=== PATIENT | male | born 1955 | race Caucasian/White ===

== ENCOUNTER 2020-04-13 16:20 | Inpatient (IN) | payer MEDICAID ==
[~2020-04-13] VITALS: Ht 177.8 cm; Wt 60.7 kg
[2020-04-13 16:25] VITALS: BP 83/56
[2020-04-13] MEDS ORDERED: PRINIVIL20 M1 PO (17:05)
[2020-04-13] MEDS ORDERED: DIPHENHIST50 MG PO (17:06)
[2020-04-13 17:25] LABS: ABSOLUTE NEUTROPHILS 7.9 thou/uL (1.4-8.2); BASOPHILS 0.8 % (0.0-2.0); EOSINOPHILS 0.7 % (0.0-3.0); HEMATOCRIT 41.4 % (42.0-52.0); HEMOGLOBIN 14.8 gm/dL (14.0-18.0); MCH 37.4 pg (26.0-34.0); MCHC 35.7 g/dL (28.0-37.0); MCV 104.8 fL (80.0-100.0); MONOCYTES 9.2 % (1.0-8.0); PLATELET COUNT 182 thou/uL (150-400); POLYS 74.3 % (36.0-66.0); RBC 3.95 mil/uL (4.50-6.00); RDW 13.6 % (10.5-14.5); WBC 10.6 thou/uL (4.0-11.0)
[2020-04-13 17:40] LABS: CALCIUM 9.8 mg/dL (8.5-10.1); POTASSIUM 3.7 mmol/L (3.5-5.1)
[2020-04-13 17:48] LABS: ALBUMIN 3.1 g/dL (3.4-5.0); DIRECT BILIRUBIN 0.3 mg/dL (<0.1-0.2); TOTAL BILIRUBIN 1.2 mg/dL (0.2-1.0); TOTAL PROTEIN 7.2 g/dL (6.4-8.2)
[2020-04-13 19:10] LABS: URINE BLOOD NEGATIVE (Negative); URINE CLARITY CLEAR; URINE COLOR YELLOW; URINE GLUCOSE-RANDOM* 1+ (Negative); URINE KETONES TRACE (Negative); URINE LEUKOCYTES-REFLEX NEGATIVE (Negative); URINE NITRITE-REFLEX NEGATIVE (Negative); URINE PROTEIN (DIPSTICK) NEGATIVE (Negative); URINE UROBILINOGEN 0.2 E.U./dl (0.2-1.0)
[2020-04-13 19:19] LABS: ICTOTEST (BILI CONFIRMATORY) Negative (Negative); URINE BILIRUBIN NEGATIVE (Negative)
[2020-04-13 21:44] VITALS: BP 84/51
[2020-04-13 22:30] VITALS: BP 92/62
[2020-04-14] VITALS (78 sets, daily range): BP systolic 84–126; BP diastolic 56–83
--- NOTE | 2020-04-14 02:07 | NUR ---
PT BECAME PROGRESSIVELY CONFUSED, RESTLESS AND COMBATIVE SINCE ARRIVING IN ICU. ATIVAN WAS GIVEN BUT NO EFFECT, PT CONTINUED TO BE RESTLESS, PULLING AT JOSHI CATHETER AND ATTEMPTING TO GET OUT OF BED, YELLING "GET ME OUT OF HERE!" SECURITY WAS CALLED TO THE ROOM, RESTRAINTS WERE INITIATED AND PRECEDEX GTT WAS STARTED PER SAEED JENKINS. AT THIS TIME PT IS SLEEPING, VITAL SIGNS STABLE, PRECEDEX AT MAX 1.4MCG/KG/HR, WILL MONITOR.
[2020-04-14 04:21] LABS: CALCIUM 8.4 mg/dL (8.5-10.1); CREATININE 3.2 mg/dL (0.7-1.3); HEMATOCRIT 35.3 % (42.0-52.0); MAGNESIUM 1.7 mg/dL (1.8-2.4); MCH 37.8 pg (26.0-34.0); MCHC 36.2 g/dL (28.0-37.0); MCV 104.5 fL (80.0-100.0); POTASSIUM 3.3 mmol/L (3.5-5.1); RBC 3.38 mil/uL (4.50-6.00); RDW 13.5 % (10.5-14.5); WBC 5.8 thou/uL (4.0-11.0)
[2020-04-14 04:24] LABS: HEMOGLOBIN 12.8 gm/dL (14.0-18.0)
--- NOTE | 2020-04-14 16:59 | NUR ---
ASSUMED PATIENT CARE AT 0700. SLEEP TILL 1640. VERY AGITAED TRY TO PULL JOSHI AND IV OUT. BP STABLE AT THE SOFT SIDE. PATIENT'S SON AT THE BED SIDE MOST OF DAY. REFUSED DRAINK. ON RESTRAINT. WILL KEEP MONITOR
--- NOTE | 2020-04-14 21:45 | NUR ---
PT IS EXTRTEMELY RESTLESS AND AGITATED YELLING OUT. HOME SPECIALIST NOTIFIED. GEODON 10 MG IM GIVEN. VSS SINUS DIONICIO TO SINUS RHYTHM. WILL CONT TO MONITOR
--- NOTE | 2020-04-14 23:00 | NUR ---
ONDINA CANAS ARCHITECTURE MANAGER LEFT ORDERS OK TO RESTART PRECEDEX FOR SEDATION.
[2020-04-15] VITALS (61 sets, daily range): BP systolic 95–143; BP diastolic 62–92
[2020-04-15 05:08] LABS: ALBUMIN 2.4 g/dL (3.4-5.0); CALCIUM 8.8 mg/dL (8.5-10.1); MAGNESIUM 1.4 mg/dL (1.8-2.4); PHOSPHORUS 2.1 mg/dL (2.5-4.9); POTASSIUM 3.7 mmol/L (3.5-5.1); TOTAL BILIRUBIN 0.7 mg/dL (0.2-1.0); TOTAL PROTEIN 5.7 g/dL (6.4-8.2)
[2020-04-15 05:22] LABS: CREATININE 1.9 mg/dL (0.7-1.3)
--- NOTE | 2020-04-15 06:00 | NUR ---
CONT TO HAVE OCC PERIODS OF RESTLESSNESS. PRECEDEX 0.1 MCG GTT SINUS DIONICIO TO SINUS RHYTHM. O2 SAT 100 % ONB ROOM AIR. 2000 CC UOP THIS SHOIFT. BATHED WILL CONT TO MONITOR,
--- NOTE | 2020-04-15 19:19 | NUR ---
DESIGNATED VISTOR SON CANDY VISITED TODAY X 3 HOURS, PRECEDEX ON HOLD BUT PT VERY DROWSY. SPOKE TO GABE (DPRICHIE) AND UPDATED HER ON PLAN OF CARE AND CONDITION. MORE AWAKE BY END OF SHIFT, OPENING EYES SPONTANEOUSLY, AND ANSWERING SOME QUESTIONS APPROPRIATELY. FAMILY CONCERNED ABOUT SEVERE SHORT TERM MEMORY LOSS RECENTLY. NO PRN MEDS GIVEN TODAY. CIWA SCORE 6-7.
--- NOTE | 2020-04-15 22:38 | NUR ---
2107 - SPOKE WITH PT'S SON CANDY. UPDATED PROVIDED ON PT STATUS AND POC FOR THE NIGHT.
[2020-04-16] VITALS (24 sets, daily range): BP systolic 97–134; BP diastolic 62–89
[2020-04-16 04:07] LABS: ALBUMIN 2.1 g/dL (3.4-5.0); ANION GAP 10 mmol/L (7-16); BUN 21 mg/dL (7-18); CHLORIDE 108 mmol/L (98-107); CO2 24 mmol/L (21-32); CREATININE 1.4 mg/dL (0.7-1.3); GLUCOSE 111 mg/dL (74-106); POTASSIUM 3.2 mmol/L (3.5-5.1); SGOT 25 U/L (15-37); SGPT 10 U/L (30-65); SODIUM 142 mmol/L (136-145); TOTAL BILIRUBIN 0.9 mg/dL (0.2-1.0); TOTAL PROTEIN 5.8 g/dL (6.4-8.2)
--- NOTE | 2020-04-16 06:39 | NUR ---
PT HAS SLEPT MOST OF THE NIGHT. HE IS ARROUSABLE AND FOLLOWS COMMANDS. PT WAS IRRITABLE AND SLIGHTLY AGITATED WITH STIMULATION EARLIER IN THE SHIFT. THIS MORNING, HE IS MORE COOEPRATIVE AND AGREEABLE WITH CARE. VSS. AFEBRILE. LORAZEPAM GIVEN ONCE DURING THE NIGHT. PT IS ALSO SPEAKING IN MORE COMPLETE SENTENCES THIS MORNING. BILATERAL WRIST RESTRAINTS D/C'D AT 0630. PT IS EASILY REDIRECTABLE AND HAS NOT BEEN PULLING AT LINES. PROGRESSING SLOWLY TOWARD POC GOALS. WILL GIVE REPORT TO ONCOMING NURSE. 0610- DTR ULISES CALLED UNIT FOR UPDATE. SHE WAS ABLE TO SPEAK TO HER FATHER ON THE PHONE WELL.
--- NOTE | 2020-04-16 10:20 | NUR ---
ASSESSMENT: CM REVIEWED CHART. PT WAS ADMITTED DUE TO ACUTE ENCEPHALOPATHY/WEAKNESS/AMS/JASVIR. PT IS FROM HOME. CM REACHED OUT TO PATIENTS DAUGHTER ULISES WHO REPORTS SHE IS THE DPOA AND HER BROTHER WAS GOING TO BRING IN THE PAPERWORK AND PROVIDE TO BEDSIDE RN. SHE REPORTS THAT PATIENT HAS A LONG HX OF ALCOHOL USE AND REPORTS HE COULD BE CONSIDERED A HOARDER. SHE REPORTS SINCE PATIENT HAS BEEN HOSPTIALIZED SHE AND HER BROTHER AND SISTER HAVE BEEN CLEANING PATIENTS HOME UP AND THAT HER SISTER BRENDAN PLANS ON MOVING IN WITH PATIENT ONCE HE IS ABLE TO GO HOME SO SHE CAN HELP ASSIST HIM AND LOOK AFTER HIM. THEY REPORT PATIENT IS NORMALLY VERY INDEPENDENT WITH ADLS AND AMBULATION. PT HAS ABOUT 16 STEPS WITH HANDRAILS TO HIS BEDROOM AND DAUGHTER REPORTS HE HAS NO ISSUES WITH STEPS. SHE STATES PATIENT HAS NOT HAD HH IN THE PAST NOR BEEN TO SNF. PT HAS LONG HX OF ALCOHOL USE AND DAUGHTER REPORTS HE HAS NOT BEEN TO AA/REHAB. SHE REPORTS HE WHISKEY DAILY. CM DISCUSSED ROLE. PATIENT IS SHOWING PATIENT PAY AND DAUGHTER REPORTS THIS IS ACCURATE AND HE CURRENTLY HAS NO INSURANCE. CM WILL CONTINUE TO FOLLOW TO ASSIST NEEDED.
--- NOTE | 2020-04-16 22:21 | NUR ---
ASSUMED PT CARE AT 1900. VSS. PT ORIENTED TO PERSON, TIME BUT NOT PLACE OR SITUATION, PT FOLOWS COMMANDS BUT DROWSY. SPOKE TO PT'S DTR BRENDAN AROUND 9PM AND UPDATED HER ON OT STATUS. OTHER ASSESSMENTS ARE CHARTED. PT IS PROGRESSING WELL TOWARDS POC GOALS.
[2020-04-17] VITALS (13 sets, daily range): BP systolic 105–142; BP diastolic 64–94
[2020-04-17 05:00] LABS: ALBUMIN 2.1 g/dL (3.4-5.0); CREATININE 1.5 mg/dL (0.7-1.3); PHOSPHORUS 2.1 mg/dL (2.5-4.9)
--- NOTE | 2020-04-17 13:59 | NUR ---
PATIENT TO CT SCAN VIA BED WITH TRANSPORTER
[2020-04-17 16:04] LABS: MAGNESIUM 1.5 mg/dL (1.8-2.4); POTASSIUM 3.7 mmol/L (3.5-5.1)
--- NOTE | 2020-04-17 18:12 | NUR ---
ASSUMED CARE PT SHIFT CHANGE. ASSESSMENTS CHARTED.MEDS GIVEN PER OCT. PT DROWSY THROUGHOUT SHIFT. ORIENTED X1-2. REORIENTED FREQUENTLY. PT DOES NOT SEEM TO REMEMBER THINGS WELL, FAMILY STATED PT'S MEMORY HAS DECLINED RECENTLY. PHYSICIAN NOTIFIED. NEURO CONSULTED. CT HEAD-REFER TO RESULTS. FAMILY UPDATED ON POC. SON VISITED WITH PT AT BEDSIDE. PT WORKED WITH PHYS THERAPY TOLERATING FAIR. CIWA SCORES CHARTED. PT BECAME AGITATED TOWARDS END OF SHIFT. PULLED OUT IV, PT REASON WAS HE DID NOT WANT IT ON HIS ARM. IV PLACED PER IV TEAM, WRAPPED IN KOBAN. PT SEEMS TO BE MORE COOPERATIVE AFTER NURSE EXPLAINS REASON FOR IV AND IV FLUIDS. PT REFUSED MEALS AND SUPPLEMENT FOR BREAKFAST AND LUNCH, ATE SOME OF DINNER. ENCOURAGED TO EAT AND DRINK. PT CURRENTLY SITTING UP IN BED ATTEMPTING TO USE HIS PHONE. WILL CONTINUE TO MONITOR PT. WILL PASS ON REPORT TO ALEXANDRA RN.
--- NOTE | 2020-04-17 20:05 | NUR ---
This RN received report from Vanessa BRUCE. This RN passed medications and gave report to JANIS Berry in CCU. Patient successfully transfered to CCU from [facility], with all belongings.
--- NOTE | 2020-04-18 01:00 | NUR ---
ASSUMED CARE FROM DAY SHIFT ICU TRANSFER, PT CONFUSED TO TIME AND SURROUNDING AND SITUATION PT CIWA WAS NINE PULL IV OUT, AND ATTEMPTING TO CLIMB OUT OF BED. AFTER 2 IV REMOVED AND PT MEDICATED PER CIWA PROTOCOL. PT REMAINS . ERNESTO TIPTON CALLED AND ORDER RECIEVED SOFT RESTAINTS UNTIL PT IS CALM AND COOPERATIVE. ORDER OBTAINED AT 2245 . HR 107 BP ELEVATED DUE TO INCREASE AGITATION. FREQ CHECKS AND CIWA EVERY 2 HOURS . WILL CONINTUE WITH CURRENT PLAN OF CARE.
[2020-04-18 03:30] VITALS: BP 154/90
--- NOTE | 2020-04-18 05:06 | NUR ---
PT LESS AGITATED AND RESTLESS ,CIWA 7 , REMAIN CONFUSED AND SOFT RESTRAINTS ON WRIST IV FLUIDS INFUSING WELL. TALKED WITH DAUGHTER NESSA INFORMED OF RESTRAINTS PLACEMENT, AND CURRENT PLAN OF CARE. WILL CONINTUE TO MONITOR AND REPORT CHANGES.
[2020-04-18 06:32] LABS: CREATININE 1.4 mg/dL (0.7-1.3); POTASSIUM 3.5 mmol/L (3.5-5.1)
[2020-04-18 07:30] VITALS: BP 134/85
[2020-04-18 11:30] VITALS: BP 140/96
--- NOTE | 2020-04-18 16:48 | NUR ---
Patient transferred from ICU he was taken out of restraints this am. he has been sleeping most of day. he is not eating well. Did not participate with therapy. He has no insurance. Sp with dtr Isabelle and son at bedside. Son reports we are planning to take patient home "when can we take him home?' was expressed multiple times by son during conversation. Discussed how sleepy he is today and cannot arouse to eat or be able to participate with therapy. Son reports dtr with her 7 children moving into home. he reports someone will always be avail to patient. family can assist with meals. Son reports he is forgetfull and has weakened in past month to weeks. Dtr concerned patient sedated and now unable to participate in therapy or eat. Discussed cannot have Home health care with no insurancce. Son reports they will pay out of pocket for therapy. Attmept to attain pricing if reasonable. PCP Dr Ludin Cameron. john gomez at me
[2020-04-18 20:00] VITALS: BP 134/88
--- NOTE | 2020-04-18 23:20 | NUR ---
ASSUMED CARE AT THIS TIME , PT ALERT CONFUSED CLIMBING OUT OF BED INCONTINENT OF URINE, CIWA 13, PT MEDICATED PER CIWA PROTOCOL AND CONDOM CATHETER PLACED ON , SOFT WRIST RESTRAINTS ON FOR SAFETY, DUE PT UNSTEADY GAIT , CONFUSION AND PT PULLING OUT LINES AND TUBES. WILL CONINTUE TO MONITOR WAGNER.
[2020-04-19] VITALS (7 sets, daily range): BP systolic 118–146; BP diastolic 50–99
--- NOTE | 2020-04-19 06:26 | NUR ---
PT REMAIN RESTLESS AND CONFUSED THROUGHOUT FREQ AND HOURLY ROUNDING,WRIST ARE RED DUE TO PT PULLING AT SOFT RESTRAINTS, WRIST WERE PADDED WITH FOAM DRESSING. ELBOW ARE RED DUE PT RUBBING ARMS BACK AND FORTH PILLOW UNDER ARM BUT PULLING PILLOWS OUT. WILL CONINTUE WITH CURRENT PLAN OF CARE.
--- NOTE | 2020-04-19 10:39 | NUR ---
SPOKE WITH SON AT BEDSIDE TO INFORM OF PT'S PROGRESS. PT SLEEPY AT THIS TIME BUT WILL AROUSE TO STIMULI. PT CONFUSED AT TO WHEHE HE IS AND WHY HE IS IN HOSPITAL. AWAITING DR. CADENA TO ROUND ON PATIENT.
[2020-04-19 14:28] LABS: HEMATOCRIT 35.8 % (42.0-52.0); HEMOGLOBIN 12.7 gm/dL (14.0-18.0); MCHC 35.5 g/dL (28.0-37.0); MCV 104.1 fL (80.0-100.0); RBC 3.44 mil/uL (4.50-6.00); RDW 13.4 % (10.5-14.5); WBC 7.5 thou/uL (4.0-11.0)
[2020-04-19 14:37] LABS: CALCIUM 8.8 mg/dL (8.5-10.1); POTASSIUM 3.3 mmol/L (3.5-5.1)
--- NOTE | 2020-04-19 16:38 | NUR ---
ESTABLISHED DOBHOFF FEEDING TUBE RIGHT NARE HOWEVER WHILE WAITING FOR XRY PT PULLED OUT. PT EXTREMELY AGITATED BY FEEDING TUBE AND WAS ABLE TO PULL IT OUT EVEN WITH SOFT BILAT WRIST RESTRAINTS. PAGE DR. CADENA AT LEAST 5 TIMES TO INFORM HOWEVER NO RETURN CALL. WILL REPLACE ELECTROLYTES IV AND CONTINUE TO ASSESS.
--- NOTE | 2020-04-19 17:50 | NUR ---
SPOKE WITH ASYA (GIANNA) ABOUT HER CONCERN OF PT'S ETOH WITHDRAWAL AND TREATMENT WITH ATIVAN FOR HIGH CIWA SCORES. DAUGHTER STATES THAT SHE BELIEVES ATIVAN IS REASON FOR HIS ALTERED MENTATION. LUANN WEBER DR. AND SURINDER INFORM DAUGHTER THAT PATIENT HAS AN ETOH ENCEPHALOPTY/ DEMENTIA. HIS BASELINE MAY BE CONFUSION HOWEVER THEY WILL BE UNSURE UNTIL A FEW DAYS. INFORM DAUGHTER THAT I WILL ASK PULPWOOD BUYER TO HOLD ATIVAN TO SEE IF THIS MAY HELP. PT REMIANS IN SOFT BILAT WRIST RESTRAINTS. INFORM DAUGHTER THAT PT PULLED OUT DOBHOFF TUBE SHORTLY AFTER IT WAS ESTABLISHED. CONTINUE TO TRY TO CONTACT DR. CADENA HOWEVER NO RETURN CALL. WILL CONTINUE TO ASSESS.
--- NOTE | 2020-04-19 17:56 | NUR ---
patient in restraints, sleeping most of day not responsive. patient not eating. Patient resides in home independently. Hx of ETOH use. Rn and phys sp with dtr/son at bedside and on phone. No weekend dc plans. Patient with no health insurance. casemgt following.
--- NOTE | 2020-04-19 19:18 | NUR ---
Spoke with daughter Isabelle [phone] at great length after she had spoken with Dr. Larose. Daughter has a better understanding of current medication and treatment plan going forward. Nursing concerns were brought to the attention of the special investigation unit investigator and powerhouse engineer. Informed daughter if she had an further concerns over the weekend to reach out to the circular head saw operator to contact the powerhouse engineer and informed both the powerhouse engineer and the daughter that I would be more than happy to speak with her this weekend as well. Assured daughter and confirmed with hand cigar making supervisor that the patients nurse will call around 10 PM and again at 6 AM to give an update on her father's status. Daughter repeatedly thanked me and Dr. Larose for our calls, information and support. YANY CM notified of all of above and will follow for discharge planning needs as they arise.
--- NOTE | 2020-04-20 02:33 | NUR ---
assumed pt care at the change of shift, pt is awake, alert and oriented to self, more agitated and restless trying to get out of bed, bilateral soft restrains on, pt medicated prn as ordered, pt is been sleeping well, no agitations thus far, frequent rounding and pericare done, warm blankets given for comfort, pt is sr on the monitor,vss, daughter called around 2214, updated about care, assessments as charted, no distress noted, will continue to monitor
[2020-04-20 04:00] VITALS: BP 139/83
[2020-04-20 05:49] LABS: APTT 39.2 Seconds (24.5-32.8); PROTIME 10.6 Seconds (9.3-11.4)
[2020-04-20 06:07] LABS: CALCIUM 8.8 mg/dL (8.5-10.1); CREATININE 1.1 mg/dL (0.7-1.3); POTASSIUM 3.3 mmol/L (3.5-5.1)
[2020-04-20 08:15] VITALS: BP 118/82
[2020-04-20 11:55] VITALS: BP 111/83
[2020-04-20 17:55] VITALS: BP 128/82
--- NOTE | 2020-04-21 07:54 | NUR ---
PROGRESS PT CALM LAST NIGHT SOFT WRIST RESTRAINTS IN PLACE REMOVED AND SKIN CHECKED Q2HRS. PT UP WITH SBA VOIDING PER URINAL. CARDIZEM DRIP INFUSING AT MG PT TOLERATING WELL. SKIN C/D/I NO AREAS OF BRAKDOWN NOTED . CONTINUE POC.
[2020-04-21 08:15] VITALS: BP 115/81
[2020-04-21 08:23] LABS: MAGNESIUM 1.6 mg/dL (1.8-2.4); POTASSIUM 3.7 mmol/L (3.5-5.1)
[2020-04-21 12:45] VITALS: BP 113/82
[2020-04-21 16:40] VITALS: BP 115/68
--- NOTE | 2020-04-21 17:00 | NUR ---
PT HAS PERIODS OF ANXIETY AND SWINGING AT STAFF...UNABLE TO REDIRECT TO FOLLOW COMMANDS...VERY CONFUSED...ATTEMPTED TO DANGLE TO SIDE OF BED WITH 2 ASSIST FOR 5 MIN...
--- NOTE | 2020-04-22 05:19 | NUR ---
ASSUME CARE 1900/. PT/VITALS STABLE. WITHDRAWALS NOTED WITH EPISODES OF AGITATION. ANXIETY/AGITATION RESOLVED WITH MEDICATION. ADEQUATE REST NOTED THROUGH THE NIGHT WITH SEDATIVES GIVEN AT BEDTIME ONLY. A/O TO PERSON ONLY BUT FOLLOWS COMMANDS WHEN DIRECTED. NO PAIN NOTED. ASSESSMENT CHARTED. SLOW PROGRESS TOWARDS POC. PLAN IS TO CONTINUE TO MONITOR ELECTROLYTES AND LOC. WILL CONTINUE TO FOLLOW WITH POC
--- NOTE | 2020-04-22 05:31 | NUR ---
late entry pt in soft wrist retraints. pt remains impulsive so wrist retrainst are in place pt reports no disconfort. sitting in bed .
--- NOTE | 2020-04-22 07:11 | HC ---
[facility] [place] [address] CONSULTATION Name: DEANGELO BARNETT Room #: 216-P ADM IN M.R.#: [id number] Admission: 04/13/20 Attend Phys: Kaye Fenton MD Discharge: Date of : 57 Report #: [id number] THIS REPORT FOR: cc: Paramjit Cameron,Paramjit Benites,Isaias Monaco MD ~ CC: Paramjit Fowler DATE OF SERVICE: 04/14/2020 NEPHROLOGY CONSULTATION REASON FOR CONSULTATION: Acute kidney injury. HISTORY OF PRESENT ILLNESS: This is a 64-year-old male who was brought to the Emergency Room by his family on the day of admission. They report that he has been failing significantly over the past couple of weeks. He has had mental status changes, loss of cognition, weakness. They are concerned as he is a heavy everyday drinker, drinking substantial amounts of whiskey every day. Intake of food and fluids has gone down. Blood pressures have been low on their checks. As he continued to worsen, he was brought into the Emergency Room yesterday. Labs will be as noted. We were asked to see him for a creatinine level of 4. The patient is still very somnolent and unable to help in taking a history. His son is at the bedside and reports his only prior issues have been some hypertension. He is a long-term smoker and long-term drinker. He was on 20 of lisinopril for hypertension, but the family held that appropriately. Never any other major medical problems. No prior surgeries or hospitalizations. He has never had substantial problem with alcohol withdrawal and has no previously diagnosed liver disease or alcohol related illness. MEDICATIONS: On admission include lisinopril 20 mg daily. ALLERGIES: No known medical allergies. FAMILY HISTORY: Unavailable. SOCIAL HISTORY: The patient is single, lives in [place], [place]. Several adult children live near him. He is retired from [employer] about 5 years ago. His son states that he spends every day drinking. He is also a chronic tobacco user of many, many years. REVIEW OF SYSTEMS: Has been weak. He has been losing weight, although he cannot quantify how much. Denies dyspnea. He is unaware of fevers, chills or [facility] [address] [place] [address] CONSULTATION Name: DEANGELO BARNETT Room #: 216-P [facility] IN .R.#: [id number] Admission: 04/13/20 Attend Phys: Kaye Fenton MD Discharge: Date of : 57 Report #: [id number] sweats. Appetite of food has been diminished. The family brings him in food and sometimes he will eat it and sometimes he would not. His mentation has been diminished. The son reports short-term memory is dramatically decreased. PHYSICAL EXAMINATION: GENERAL: A 64-year-old male seen in the Intensive Care Unit. He is very somnolent. He will arouse slightly and respond and try to open his eyes to make a bit of a grunting noise and then drifts right back to sleep. VITAL SIGNS: Current blood pressure 101/68. He had been as low as 76/45 on presentation yesterday. Temperature is 36.4 degrees centigrade, heart rate 58, respiratory rate 12, oxygen saturation 100%. HEENT: Shows pupils are equal and reactive at 3 mm. Sclerae are nonicteric. Oral mucosa is somewhat dry. NECK: Veins are flat. Neck is supple, no adenopathy. CHEST: Clear bilaterally. CARDIOVASCULAR: Heart has a regular rate and rhythm, borderline bradycardia. ABDOMEN: Nondistended, soft. Few bowel sounds are present. I cannot percuss or palpate an enlarged liver and/or any other organs. No guarding or rebound. EXTREMITIES: Shows some decreased skin turgor ____. No edema. LABORATORY DATA: Labs from presentation, sodium 136, potassium 3.7, chloride 92, bicarbonate 35, BUN 66, creatinine 4.0, glucose 107. AST 22, ALT 9, total bilirubin 1.2, calcium 9.8, magnesium 2.0. Total protein 7.2, albumin 3.2. CPK was 30. Alcohol less than 10. Ammonia less than 10. White count 10.6, hemoglobin 14.8, hematocrit 41.4, platelets 182,000 with an MCV of 104.8. Urinalysis; specific gravity 1.010, pH 6.0, 1+ glucose, trace ketones, negative microscopic exam. No radiologic studies were done. ASSESSMENT: 1. Acute kidney injury. He was hypotensive on arrival. He has been given quite a bit of fluids. He still needs more fluids as he is still hypovolemic on exam. He has been making some urine and creatinine level is starting to come down to 3.2. His urinalysis was significant only for the ketones that were present. No evidence of any inflammation based on cells. There is no proteinuria. We need to get a renal ultrasound to make sure he is not obstructed. We will give him some more IV fluids and follow along. Appropriately, with his hypotension, he has been off of his lisinopril. We will certainly keep him off of that at this time. At this point, I do not find evidence of other nephrotoxic exposures or other renal insults. 2. Long-term alcohol use/abuse. He was given Precedex overnight. He remains very somnolent. There is no evidence of withdrawal at this time, I will defer to the primary team. It is remarkable that he does not have more evidence of chronic liver disease. Bilirubin is minimally elevated. His MCV is high, but other than that, there is not much evident on his labs. [facility] [address] [address] CONSULTATION Name: DEANGELO BARNETT Room #: 216-P ADM IN M.R.#: [id number] Admission: 04/13/20 Attend Phys: Kaye Fenton MD Discharge: Date of : 57 Report #: [id number] 3. Long-term smoking disorder. 4. Past history of hypertension. Now off of the lisinopril. PLAN: 1. We will give him some additional IV fluid bolus. 2. Continue his current rate of IV fluids on top of that. 3. Continue to manage alcohol withdrawal. 4. Get a renal ultrasound. 5. Repeat labs again in the morning. 6. We will follow along the care of this patient. <ELECTRONICALLY SIGNED> By: Isaias Suarez MD 04/22/20 0711 [id number] Isaias Suarez MD /nt
--- NOTE | 2020-04-22 07:55 | NUR ---
soft restraints in place from 1900 04/20/20 to 0700 04/21/20, removed every 2 hours to check circulation, skin and behavior allow for food and fluids and bathroom use reapplied when put back to bed. I was unable to correct my charting for restraints.
--- NOTE | 2020-04-22 09:15 | NUR ---
On Wednesday04/21/2020 at 1413 was asked by the Dental Office Manager Rosendo to contact daughter Isabelle Flood at [phone] over concerns with father. I did call and she asked if her brother who was at the hospital and has been the designated visitor could join to which I agreed. Both expressed concerns of the length of time of their father had been in restraints and that Dr. Fenton had now started their father on Seroquel. Son reports on Wednesday that father had been out of restraints for a good portion of the day and was eating and drinking for him. Son and daughter concerned over patients incontinence while by being restrained. Explained I would make some calls and call them back. I then spoke with the nurse Latoya on the care of the patient. Asked Latoya to ask for assist to get the patient up to edge of bed if the patient is able while the son is in the room. To which she agreed. Son later told his sister that was being done. I did reach out to Dr. Fenton and inquired on the use of Seroquel and was there a discussion with Dr. Larose. Dr. Fenton stated since there was no psych coverage she order the medication. Informed Dr. Fenton that I would reach out to Dr. Larose (which was done at 1513) to for her to call Dr. Fenton on this case as she had seen and prescribed medication for the patient late Wednesday evening. Dr Fenton asked that I let the daughter know she would call Isabelle back after 4 today to discuss his care. Dr Larose contacted me back after her conversation with Dr. Fenton and the Seroquel was discontinued and the two agreed to Risperidone 0.5 three time daily. Returned call to hector Walton at 1454 and explained all of above. Also informed the daughter I would be discussing this case on Wednesday and will meet her father and possibly with Dr. Larose at rounds. Isabelle then informed me that her brother would not be able to visit on either Wednesday or Wednesday and she would like to be the visitor on these days. I told her there were strict protocols in place but I would escalate this request per she and her brothers request. At 1734 Dr. Fenton did reach out to me to let me know that she had connected with the daughter and all was improved. Will discuss case with Outside Cutter Hand and administration in light of all service recovery. Dental Office Manager was notified of all of the above.
--- NOTE | 2020-04-22 11:03 | NUR ---
Discussed status with nurse and met with patient who is out of restraints. Patient was at first groggy but became more alert. Dr. Larose was on the unit and she and I both met with the patient who was alert and oriented to time, place and person. Patient was not combative and could hold a conversation on his stay at the hospital and voiced an understanding of the plan of care. Nurse Maritza worked with Dr. Larose on adjustment of medications and was assisting the patient with breakfast and drinking. Notably patient was taking all medications by mouth without effort. Did speak with administration who agreed that daughter Yoli could be the designated visitor for Wednesday and Wednesday as the brother was unable to visit. Called the housekeeper and laundry assistant who alerted the roping tender (s) that the daughter would be on the list for 04/22 and 04/23. Notified the senior case manager that daughter will be in today and tomorrow as the discharge plan has been for the patient to go home with family. I then notified Yoli of the visiting for today and tomorrow and improved mental status seen this am, out of restraints, conversing appropriately and taking in PO medications and liquids and food. Daughter very appreciative of care and follow up and directions given [facility] and to stop and meet with roping tender as her name has been placed on the list. Case Management will continue to follow for further needs.
[2020-04-22 16:00] VITALS: BP 102/58
--- NOTE | 2020-04-22 19:45 | NUR ---
ASSUMED CARE AT CHANGE OF SHIFT. ALERT TO SELF, REQUIRES REIORIANTATION. CONFUSED TO PLACE AND SITUATION. PT PROGRESSING TOWARDS GOALS. TX MILD AGGITAION WITH PRN RISPERIDONE. ASSIST X1 WITH GATE BELT. APPETITE IMPROVING. UN ABLE TO DEMONSTRATE CALL LIGHT. FALL PRECAUTIONS IN PLACE.
[2020-04-22 20:30] VITALS: BP 99/59
[2020-04-23 04:45] VITALS: BP 96/70
--- NOTE | 2020-04-23 06:42 | NUR ---
ASSUME CARE 1900. PT/VITALS STABLE. A/O TO PERSON BUT IS COOPERATIV AND FOLLOWS COMMANDS WITH REDIRECTION. NO EPISODES OF AGITTION NOTED THROUGH THE SHIFT BUT PT IS STILL IMPULSIVE. OVERALL LOC IS IMPROVING WITH LESS SEDATIVES GIVEN. ASSESSMENT CHARTED. NO DISTRESS NOTED THROUGH THE NIGHT. ADEQUATE REST NOTED. NO INCONTINENCE NOTD. PT USES BATHROOM OR URINAL AT TIMES. DOES NOT CALL OUT FOR ASSISTANCE WITH ANY NEED BUT CAN BE REDIRECTED. PROGRESSING WELL WITH POC. PLAN IS TO CONTINUE TO MONITOR LOC. WILL FOLLOW WITH POC
[2020-04-23 07:10] VITALS: BP 99/72
--- NOTE | 2020-04-23 08:41 | NUR ---
ASSUMED CARE OF PT AT SHIFT CHANGE, AN 0900 MED GIVEN PRIOR SHIFT D/T IMPULSIVITY/EXCESS ACTIVITY. HE'S PRETTY LETHARGIC CURRENTLY YET A&0X2, IS NOT IMPULSIVE AT THIS TIME, WILL HELP GET HIM UP AND SET UP FOR BREAKFAST ONCE HE'S READY. SEE SEPARATE INTERVENTIONS FOR ASSESSMENTS, ENCOURAGED PT TO USE CALL LIGHT FOR ANY NEEDS. SLIGHTLY SLURRED QUIET SPEECH. WILL CONTINUE TO MONITOR. PT NEAR NURSE STATION AND BED ALARM ENGAGED
[2020-04-23 16:00] VITALS: BP 107/72
--- NOTE | 2020-04-23 16:05 | NUR ---
5N eval for possible roman admit. Migdalia TIPTON for 5N reports will review therapies in am. Possible short 5 day stay or roman visits. Dtr in room and now designated visitor.
[2020-04-23 16:40] LABS: CREATININE 1.5 mg/dL (0.7-1.3); MAGNESIUM 1.6 mg/dL (1.8-2.4); POTASSIUM 5.1 mmol/L (3.5-5.1)
[2020-04-23 20:30] VITALS: BP 106/51; BP 117/62
[2020-04-23 21:06] LABS: SYPHILIS AB Non Reactive (Non Reactive)
[2020-04-24 04:45] VITALS: BP 113/76
--- NOTE | 2020-04-24 05:24 | NUR ---
ASSUMED CARE OF PATIENT AT 1900. PATIENT A&O X 3 AND FORGETFUL. PATIENT IMPULSIVE THROUGH NOC AND HAS TO BE REMINDED TO CALL FOR HELP AND THAT HE HAS AN IV. PATIENT UNSTEADY DURING AMBULATION. DESPITE CONTINUED IMPLUSIVENESS, PATIENT DOES APPEAR TO BE PROGRESSING TOWARDS HIS GOALS.
[2020-04-24 07:39] VITALS: BP 104/71
--- NOTE | 2020-04-24 11:11 | NUR ---
PT WOKE UP THIS MORNING AND WAS VERY CONFUSED, CLIMBED OUT OF BED, ALARM GOING OFF, THIS RN ASSISTED PT TO CHAIR, INFORMED HIM HE WAS IN THE HOSPITAL. PT CHAIR ALARM THEN GOING OFF SEVERAL TIMES, PT STILL NOT AWARE WHERE HE IS, INFORMED HIM AGAIN OF BEING IN THE HOSPITAL. PT PLEASANT AND COOPERATIVE WITH STAFF. PT DID PULL LAC PIV OUT ONE TIME WHEN HE STOOD UP AND NEEDED TO GO TO BATHROOM. ANOTHER PIV PLACED IN RFA WITH NO DIFFICULTY. PT NOW IN BED WITH BED ALARM ON STATING HE IS GOING TO TAKE A NAP.
[2020-04-24 12:30] VITALS: BP 105/70
--- NOTE | 2020-04-24 14:14 | NUR ---
patient being evaled by [facility]. Therapy evals in am indicated [facility] beneficial. Therapy sp with [facility] liason. [facility] considering admission but prefers a sitter or near nurses station. Sp with dtr to discuss above. She reports she feels patient may be better with return to family at home. She reports patients home is not prepared to dc home but patient will stay with a family member. DC emergency planner contacted [facility] for roman visits but they do not service [place]. Continua no roman. Sharmila will review. PCP Dr Paramjit Cameron. Dtr reports they will provide 01/03 care at home.
--- NOTE | 2020-04-24 15:38 | NUR ---
REFERRAL FAXED TO [facility] RECEIVED CONFIRMATION THEY WILL REVIEW.
[2020-04-24 16:09] VITALS: BP 106/75
--- NOTE | 2020-04-24 18:16 | NUR ---
PT IMPULSIVE BUT COOPERATIVE ALL DAY TODAY UNTIL ABOUT 1730. PT THEN BECAME AGITATED, STATED HE WANTED ONE OF THE CIGARETTES ON THE COUNTER, TOLD HIM THAT THERE WERE NO CIGARETTES, THAT THIS IS A HOSPITAL SO WE DON'T HAVE CIGARETTES. PT ARGUED THAT THIS IS NOT A HOSPITAL AND THAT I WAS LYING TO HIM. PT PULLED OUT IV AND WAS BLEEDING.
[2020-04-24 20:11] VITALS: BP 128/88
[2020-04-25 03:41] VITALS: BP 133/77
--- NOTE | 2020-04-25 06:30 | NUR ---
PT IS ALERT AND ORIENTED X2. IMPULSIVE AND CONFUSED THINKS HE IS AT THE APARTEMENT OF HIS EX . CLIMBS OUT OF BED OVER THE RAILS TO BATHROOM WITH BED ALRAM ON AT THIS TIME. LUNGS ARE CLEAR. ABDOMEN IS FLAT AND BOWEL SOUNDS ACTIVE. HE REPORTS HE HASNT HAD A DRINK LATELY TO ME THE NURSE. FAMILY HAS CALLED DURING THE NIGHT AND UPDATED ON PT PROGRESS. CALL LIGHT WITHIN REACH BUT DOESNT USE IT FOR HELP.
[2020-04-25 07:20] VITALS: BP 121/78
--- NOTE | 2020-04-25 10:01 | NUR ---
FAXED REFERRAL TO [facility] SPOKE WITH INTAKE AND THEY DO NOT SERVICE [place] DP TO FOLLOW.
--- NOTE | 2020-04-25 10:38 | HC ---
[facility] [place] [address] CONSULTATION Name: DEANGELO BARNETT Room #: 216-P ADM IN M.R.#: [id number] Admission: 04/13/20 Attend Phys: Kaye Fenton MD Discharge: Date of : 57 Report #: [id number] THIS REPORT FOR: cc: Paramjit Cameron,Paramjit Melendez,Luis Monaco MD ~ CC: Kaye Cameron DATE OF SERVICE: 04/17/2020 HISTORY OF PRESENT ILLNESS: 1. This is a 64-year-old male patient who was evaluated by me for slow decline in the patient's memory. The patient is a very poor historian. He is a pretty reluctant historian too. 2. He will not give any good history and lot of time, he is evasive. But it is clear from whatever history I can get, this patient is every day alcohol drinker for long time. He drinks large amount of alcohol a day and he has been doing it for a long time. His memory problems started insidiously and has become worse. He does not know whether it is for short-term or long-term, but looks like it is for both. REVIEW OF SYSTEMS: Indicate longstanding history of unhealthy habits including alcohol intake as well as smoking. When asked whether he is anxious or nervous, he said who is not. He also had what looks like hypertension. He was seen by Nephrology and he had a BUN of 66 and creatinine of 4. As mentioned above, he was hypotensive when he came in. He does have a history of hypertension. A 14-point review of system was carried out and thus all I can get both from the record as well as from the patient. 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 PAST MEDICAL HISTORY: Positive for hypertension. FAMILY HISTORY: According to him is unremarkable. SOCIAL HISTORY: He has a longstanding history of heavy alcohol and nicotine abuse. PHYSICAL EXAMINATION: Indicate he is pretty slow in talking. He could not tell me what date it was, but he knew what hospital he was in and he was able to name the president. He talks very slowly. His memory is impaired. His cranial nerve examination and neuromuscular examination was attempted. His cooperation was very poor, but looks like it is symmetrical. He can do vkhjdi-[id number] and chig-do-bpiv and his reflexes appear to be present. His position sense is intact. He has good pulses. He did not cooperate. I could not look at the [facility] [address] [place] [address] CONSULTATION Name: DEANGELO BARNETT Room #: 216-P [facility] IN M.R.#: [id number] Admission: 04/13/20 Attend Phys: Kaye Fenton MD Discharge: Date of : 57 Report #: [id number] patient's fundus. His hearing and visual looks adequate. He is moderately built individual. His vital signs indicate a blood pressure of 132/88, respirations 14, pulse is 87, temperature is 98.2. LABORATORY DATA: His lab indicated normal white count, but macrocytosis and decreased platelet is 130. He does have sodium of 146, but his creatinine is better now at 1.5. His TSH was normal. His ammonia level is less than 10. 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 Presently that he is also having multiple metabolic problems and may have withdrawal. Therefore, he may not be a very good candidate to do the neuropsychological testing, which he needs to determine between dementia and pseudodementia. He is not very cooperative at the moment, but sometime along the line, we can get an MRI and EEG and I will also order a vitamin B12 level. I will discuss the patient with you and arrange this testing time, but presently I think he is going to go to withdrawal and will need the management of that before we can do anything else. Thank you very much for this referral. I discussed all of it with the patient and I also talked to the nurses. <ELECTRONICALLY SIGNED> By: Luis Nichols MD 04/25/20 1038 27 28 Luis Nichols MD /nt
--- NOTE | 2020-04-25 10:39 | EEG ---
[facility] [place] [address] ELECTROENCEPHALOGRAM Name: DEANGELO BARNETT Room #: 216-P [facility] IN M.R.#: [id number] Admission: 04/13/20 Attend Phys: Kaye Fenton MD Discharge: Date of : 57 Report #: [id number] THIS REPORT FOR: //name// CC: Kaye Cameron DATE OF SERVICE: 04/19/2020 This patient is being evaluated for the possibility of seizure and encephalopathy. EEG was done by placing the electrode by standard 10-20 system of electrode placement. Both referential and sequential montages were used for recording. Background activity in this patient's EEG is about 8 Hz and 30 microvolt. It is a poorly formed background activity. A lot of artifact is present. The patient became drowsy and that is associated with bilateral slowing and vertex sharp waves. Photic stimulation is unremarkable. Throughout the record, no active epileptiform activity was noticed. IMPRESSION: This patient's EEG is intermixed with theta range slowing on both sides. That is a nonspecific abnormality, which can occur with encephalopathy, effect of psychotropic medication, dementia, etc. Clinical correlation is recommended. Thank you very much for this referral. <ELECTRONICALLY SIGNED> By: Luis Nichols MD 04/25/20 1039 [id number] Luis Nichols MD /nt
[2020-04-25 11:38] LABS: ALBUMIN 2.9 g/dL (3.4-5.0); CALCIUM 9.6 mg/dL (8.5-10.1); CREATININE 1.4 mg/dL (0.7-1.3); POTASSIUM 4.6 mmol/L (3.5-5.1); TOTAL BILIRUBIN 0.5 mg/dL (0.2-1.0); TOTAL PROTEIN 7.2 g/dL (6.4-8.2)
[2020-04-25] MEDS ORDERED: RISPERIDONE 00.25 MG PO (16:00)
[2020-04-25] MEDS ORDERED: MAGNESIUM400 MG PO (16:01)
[2020-04-25] MEDS ORDERED: FOLIC ACID1 MG PO (16:01)
[2020-04-25] MEDS ORDERED: VITAMIN B-1100 M2 PO (16:01)
[2020-04-25 16:04] VITALS: BP 121/78
--- NOTE | 2020-04-25 16:14 | NUR ---
ASSUMED CARE OF PT AT SHIFT CHANGE. ASSESSMENTS CHARTED. MEDS GIVEN PER OCT. PT ALERT TO SELF AND TIME. REFUSED TO WEAR TELE MONITOR. VERY IMPULSIVE, WANTING TO GO OUT TO SMOKE. BECAME PROGRESSIVELY MORE AGITATED THROUGHOUT THE AFTERNOON. WOULD NOT STAY IN ROOM, TRIED TO LEAVE UNIT. REFUSED RISPERIDONE. ASIF WAS CALLED AND STOOD OUTSIDE OF HIS ROOM WHILE AMANDA FROM [facility] SPOKE WITH HIM AND HIS DAUGHTER WHO WAS ON THE PHONE. DISCHARGE TO [facility] WAS CANCELLED. DAUGHTER CAME, DR WNOG DISCHARGED PT HOME WITH DAUGHTER. PT WALKED OUT USING WALKER WITH DAUGHTER TO WAITING CAR.
== END 2020-04-25 16:10 | disposition home or self-care (01) | DRG 682 ==
LOC: ER 16:20 → 2N 19:52 → ICU 19:52 → EROBS 19:52 → ICU 22:55 → 2N 04-17 20:08
PROVIDERS: Emergency Medicine; Hospitalist; Internal Medicine; Internal Medicine Nephrology; Nurse Practitioner Family; Psychiatry & Neurology Neuromuscular Medicine; Psychiatry & Neurology Psychiatry; ADMIT Hospitalist; ATTEND Hospitalist
DX: N17.9 Acute kidney failure, unspecified (principal); G93.41 Metabolic encephalopathy; F10.27 Alcohol dependence with alcohol-induced persisting dementia; F10.231 Alcohol dependence with withdrawal delirium; E46 Unspecified protein-calorie malnutrition; I10 Essential (primary) hypertension; F10.229 Alcohol dependence with intoxication, unspecified; E86.0 Dehydration; I95.9 Hypotension, unspecified; F17.210 Nicotine dependence, cigarettes, uncomplicated; R62.7 Adult failure to thrive; E86.9 Volume depletion, unspecified; R41.0 Disorientation, unspecified; E87.6 Hypokalemia; E83.42 Hypomagnesemia; Z71.6 Tobacco abuse counseling; Z68.21 Body mass index [BMI] 21.0-21.9, adult; Z79.899 Other long term (current) drug therapy
CPT/HCPCS: 10078; 10081; 10203